=== PATIENT | female | born 2005 | race Two or more races ===

== ENCOUNTER 2025-02-19 13:03 | Emergency (ER) | payer OTHER ==
[~2025-02-19] VITALS: Ht 154.9 cm; Wt 41.7 kg
[2025-02-19] MEDS ORDERED: ACETAMINOPHEN 500 MG GEL..CAP PO ONE ×2 (14:30→15:19)
[2025-02-19] MEDS ORDERED: ORPHENADRINE CITRATE 30 MG/ML AMPUL IM ONE (14:30)
[2025-02-19] MEDS ORDERED: ORPHENADRINE CITRATE 30 MG/ML AMPUL ONE (15:18)
[2025-02-19] MEDS ORDERED: NORFLEX100MG PO (19:12)
== END 2025-02-19 20:00 ==
LOC: ER 13:04
DX: S09.8XXA Other specified injuries of head, initial encounter (principal); V43.62XA Car passenger injured in collision with other type car in traffic accident, initial encounter; Y93.89 Activity, other specified; Y92.413 State road as the place of occurrence of the external cause